=== PATIENT | female | born 1965 | race Caucasian/White ===

== ENCOUNTER 2023-03-04 20:24 | Emergency (ER) | payer BC, SELFPAY ==
[2023-03-04 20:26] VITALS: BP 146/75; PULSE 72; RESP 16; TEMP 36.8; O2SAT 99
--- NOTE | 2023-03-04 21:02 | ED.WOUNDLAC ---
HPI - Wound/Laceration General Chief Complaint: Wound/Laceration <Heydi Epstein PA-C - Last Filed: 03/05/23 02:42> Stated Complaint: Laceration <SUKHI Jose Last Filed: 03/05/23 02:42> Time Seen by Provider: 03/04/23 20:52 <Heydi Epstein PA-C - Last Filed: 03/05/23 02:42> History of Present Illness HPI narrative: 57 y/o F reports for evaluation of a left third finger skin avulsion that occurred just prior to arrival. Patient states she was cutting stems off the [place]opez and excellently cut her finger with scissors. She states she was having difficulty stopping the bleeding, however the bleeding stopped when she was roomed in the ED. Last tetanus shot was in 2019. She is not on blood thinners. <Heydi Epstein PA-C - Last Filed: 03/05/23 02:42> Review of Systems Review of Systems: CONSTITUTIONAL: Denies fever, chills EYES: Denies visual changes, redness, or discharge. ENT: Denies rhinorrhea, congestion, sore throat, or otalgia. CARDIOVASCULAR: Denies chest pain, palpitations, or edema. RESPIRATORY: Denies cough or dyspnea. GASTROINTESTINAL: Denies abdominal pain, nausea, vomiting, or diarrhea. GENITOURINARY: Denies dysuria or hematuria. SKIN: See HPI MUSCULOSKELETAL: Denies back pain, joint pain, or myalgia. NEUROLOGIC: Denies headache, numbness, dizziness, or weakness. PSYCHIATRIC: Denies anxiety or depression. <Heydi Epstein PA-C - Last Filed: 03/05/23 02:42> Exam Narrative: GENERAL: Well-appearing, in no acute distress. NECK: Supple. CHEST: No respiratory distress. Clear to auscultation, no adventitious breath sounds. HEART: Regular rate and rhythm. No murmur heard. Normal peripheral pulses. EXTREMITIES: Normal range of motion. No edema. SKIN: Small skin avulsion to the distal aspect of the left third finger. Bleeding controlled. No deep structures or foreign bodies visualized. Full range of motion of finger. Radial pulse 2+. Cap refill less than 2. Sensation intact. NEURO: No focal deficits. Alert and oriented x3. PSYCH: Normal mood and affect. <Heydi Epstein PA-C - Last Filed: 03/05/23 02:42> Course MOLD FILLER/PA Physician Supervision This is a was performed by both a physician and an APC. I performed all aspects of the MDM as documented w/ the following additions: 49-year-old female presenting with finger injury. No repair required. Wound was cleaned and bandaged. discharge.All questions answered. Patient in agreement w/ disposition. <Isael Modi MD - Last Filed: 03/14/23 21:21> Vital Signs Vital signs: Vital Signs Temperature 98.2 F 03/04/23 20:26 Pulse Rate 72 03/04/23 20:26 Respiratory Rate 16 03/04/23 20:26 Blood Pressure 146/75 H 03/04/23 20:26 Pulse Oximetry 99 03/04/23 20:26 Oxygen Delivery Room Air 03/04/23 20:26 Temperature 98.2 F 03/04/23 20:26 Pulse Rate 72 03/04/23 20:26 Respiratory Rate 16 03/04/23 20:26 Blood Pressure 146/75 H 03/04/23 20:26 Pulse Oximetry 99 03/04/23 20:26 Oxygen Delivery Room Air 03/04/23 20:26 <Heydi Epstein PA-C - Last Filed: 03/05/23 02:42> Vital Signs Temperature 98.2 F 03/04/23 20:26 Pulse Rate 72 03/04/23 20:26 Respiratory Rate 16 03/04/23 20:26 Blood Pressure 146/75 H 03/04/23 20:26 Pulse Oximetry 99 03/04/23 20:26 Oxygen Delivery Room Air 03/04/23 20:26 Temperature 98.2 F 03/04/23 20:26 Pulse Rate 72 03/04/23 20:26 Respiratory Rate 16 03/04/23 20:26 Blood Pressure 146/75 H 03/04/23 20:26 Pulse Oximetry 99 03/04/23 20:26 Oxygen Delivery Room Air 03/04/23 20:26 <Isael Modi MD - Last Filed: 03/14/23 21:21> MDM - Wound/Laceration MDM Narrative Medical decision making narrative: 57-year-old female reports for evaluation of a skin avulsion to the distal aspect of her left third finger that occurred just prior to arrival after she accidentally cut her finger with scissors.
== END 2023-03-04 21:08 | disposition home or self-care (01) ==
PROVIDERS: Emergency Provider Physician Assistant
DX: S61.223A Laceration with foreign body of left middle finger without damage to nail, initial encounter (principal); W26.8XXA Contact with other sharp object(s), not elsewhere classified, initial encounter
CPT/HCPCS: 99282